=== PATIENT | male | born 1940 | race Caucasian/White ===

== ENCOUNTER 2018-10-31 16:13 | Emergency (ER) | payer MEDICARE, OTHER ==
[~2018-10-31 16:13] MED LIST: ALBU18HF2 INH; CALC-793 PO; CARB15DR95 OP; CYCL-1 PO; DOCU100C41 PO; EDOX60TA PO; FLUT16SP26 BOTHNARES; FURO40TA4 PO; GABA-532 PO; HYDR-4383 PO; LATA2.5D6 LEFTEYE; LEVO25TA50 PO; LEVO500T2 PO; LISI5TAB PO; METO25TA6 PO; METR500T PO; NITR0.4T48 SL; OMEP20TA5 PO; POTA20TA19 PO; PRAV10TA38 PO
[2018-10-31 16:51] LABS: BASOPHILS % (AUTO) 0.5 % (0-1); EOSINOPHILS # (AUTO) 0.2 X10'3 (0-0.9); EOSINOPHILS % (AUTO) 2.4 % (0-6); HEMATOCRIT 45.4 % (42.0-52.0); HEMOGLOBIN 14.8 g/dl (14.0-17.9); LYMPHOCYTES # (AUTO) 1.1 X10'3 (1.1-4.8); LYMPHOCYTES % (AUTO) 15.8 % (21-51); MEAN CORPUSCULAR HEMOGLOBIN 30.4 PG (27.0-31.0); MEAN CORPUSCULAR HGB CONC 32.7 % (33.0-36.5); MEAN PLATELET VOLUME 9.1 FL (7.4-10.4); MONOCYTES # (AUTO) 0.7 X10'3 (0-0.9); MONOCYTES % (AUTO) 10.3 % (2-12); NEUTROPHILS # (AUTO) 5.1 X10'3 (1.8-7.7); PLATELET COUNT 139 X10'3 (140-440); RED BLOOD COUNT 4.88 X10'6 (4.70-6.10); RED CELL DISTRIBUTION WIDTH 14.3 % (11.5-14.5); WHITE BLOOD COUNT 7.1 X10'3 (4.5-11.0)
[2018-10-31 17:03] LABS: ALANINE AMINOTRANSFERASE 28 U/L (12-78); ALBUMIN 3.5 G/DL (3.4-5.0); ALKALINE PHOSPHATASE 53 IU/L (46-116); ANION GAP 9 (8-16); ASPARTATE AMINO TRANSFERASE 18 U/L (10-37); BILIRUBIN,TOTAL 0.4 MG/DL (0.1-1.0); BLOOD UREA NITROGEN 33 MG/DL (7-18); BUN/CREATININE RATIO 26.2 (5.4-32.0); CALCIUM 8.6 MG/DL (8.5-10.1); CHLORIDE 101 MMOL/L (99-107); CREATININE 1.26 MG/DL (0.60-1.10); GLUCOSE 104 MG/DL (70-104); POTASSIUM 4.6 MMOL/L (3.5-5.1); SODIUM 139 MMOL/L (135-145); TOTAL CARBON DIOXIDE 29.1 MMOL/L (24-32); TOTAL PROTEIN 7.1 G/DL (6.4-8.2); eGFR 55 ML/MIN
[2018-10-31 17:14] LABS: PARTIAL THROMBOPLASTIN TIME 27 SECONDS (22-32); PROTHROMBIN TIME 10.2 SECONDS (9.0-12.0)
[2018-10-31] MEDS ORDERED: albuterol 2.5 MG/3 ML nebule NEB ONE (20:00)
[2018-10-31] MEDS ORDERED: dexamethasone 4mg tablet PO ONE (21:30)
[2018-10-31] MEDS ORDERED: PRED20TA PO (21:32)
[2018-10-31] MEDS ORDERED: normal saline 1000ml 1,000 ML IV ONE (21:48)
[2018-10-31] MEDS ORDERED: normal saline 1000ML IV soln IVB ONE (21:50)
[2018-10-31] MEDS ORDERED: iohexol 350MG/ML 100ml bottle IV ONE (22:02)
[2018-10-31 23:00] VITALS: BP 105/67
== END 2018-10-31 23:05 | disposition home or self-care (01) ==
LOC: ER 16:13
DX: I95.9 Hypotension, unspecified (principal); I50.9 Heart failure, unspecified; R06.02 Shortness of breath; R14.0 Abdominal distension (gaseous); I25.10 Atherosclerotic heart disease of native coronary artery without angina pectoris; I25.2 Old myocardial infarction; Z86.73 Personal history of transient ischemic attack (TIA), and cerebral infarction without residual deficits; Z90.49 Acquired absence of other specified parts of digestive tract; Z98.890 Other specified postprocedural states; Z79.899 Other long term (current) drug therapy; Z88.8 Allergy status to other drugs, medicaments and biological substances
CPT/HCPCS: 36415; 71045; 71275; 74176; 80053; 83605; 83880; 84484; 85025; 85610; 85730; 87040; 93005; 93975; 94640; 94760; 96360; 99284; J7030; J8540; Q9967

== ENCOUNTER 2019-01-25 16:46 | Emergency (ER) | payer MEDICARE, OTHER ==
[~2019-01-25] VITALS: Ht 167.6 cm; Wt 79.0 kg
[2019-01-25 18:02] LABS: BASOPHILS # (AUTO) 0.1 X10'3 (0-0.2); BASOPHILS % (AUTO) 0.9 % (0-1); EOSINOPHILS # (AUTO) 0.2 X10'3 (0-0.9); EOSINOPHILS % (AUTO) 2.4 % (0-6); HEMATOCRIT 41.3 % (42.0-52.0); HEMOGLOBIN 13.9 g/dl (14.0-17.9); LYMPHOCYTES % (AUTO) 11.8 % (21-51); MEAN CORPUSCULAR HEMOGLOBIN 31.8 PG (27.0-31.0); MEAN CORPUSCULAR HGB CONC 33.8 g/dL (33.0-36.5); MEAN CORPUSCULAR VOLUME 94.2 FL (78-98); MEAN PLATELET VOLUME 8.7 FL (7.4-10.4); MONOCYTES # (AUTO) 0.9 X10'3 (0-0.9); MONOCYTES % (AUTO) 9.6 % (2-12); NEUTROPHILS # (AUTO) 6.7 X10'3 (1.8-7.7); NEUTROPHILS % (AUTO) 75.3 % (42-75); PLATELET COUNT 140 X10'3 (140-440); RED BLOOD COUNT 4.38 X10'6 (4.70-6.10); RED CELL DISTRIBUTION WIDTH 15.1 % (11.5-14.5); WHITE BLOOD COUNT 8.9 X10'3 (4.5-11.0)
[2019-01-25 18:20] LABS: PARTIAL THROMBOPLASTIN TIME 28 SECONDS (22-32); PROTHROMBIN TIME 10.4 SECONDS (9.0-12.0)
[2019-01-25 18:28] LABS: ALANINE AMINOTRANSFERASE 23 U/L (12-78); ALBUMIN 3.4 G/DL (3.4-5.0); ALBUMIN/GLOBULIN RATIO 0.9 (1.1-1.5); ALKALINE PHOSPHATASE 53 IU/L (46-116); ANION GAP 7 (8-16); ASPARTATE AMINO TRANSFERASE 14 U/L (10-37); BILIRUBIN,TOTAL 0.3 MG/DL (0.1-1.0); BLOOD UREA NITROGEN 40 MG/DL (7-18); BUN/CREATININE RATIO 23.3 (5.4-32.0); CALCIUM 8.3 MG/DL (8.5-10.1); CHLORIDE 101 MMOL/L (99-107); CREATININE 1.72 MG/DL (0.60-1.10); GLUCOSE 107 MG/DL (70-104); POTASSIUM 3.5 MMOL/L (3.5-5.1); SODIUM 137 MMOL/L (135-145); TOTAL CARBON DIOXIDE 29.3 MMOL/L (24-32); eGFR 38 ML/MIN
[2019-01-25] MEDS ORDERED: ondansetron/PF 4mg/2ml inj IV ONE (18:55)
[2019-01-25] MEDS ORDERED: normal saline 1000ML IV soln IVB ONE (18:55)
[2019-01-25] MEDS ORDERED: dexamethasone sod phosphate 10mg/ml inj IV STA (18:59)
[2019-01-25] MEDS ORDERED: ipratropium/albuterol 3ml nebule NEB ONE (19:00)
[2019-01-25] MEDS ORDERED: azithromycin 250mg tablet PO ONE (20:10)
[2019-01-25] MEDS ORDERED: AZIT-63 PO (20:12)
[2019-01-25] MEDS ORDERED: PRED20TA PO (20:12)
[2019-01-25 21:01] VITALS: BP 95/57
== END 2019-01-25 21:02 | disposition home or self-care (01) ==
LOC: ER 16:46
DX: J40 Bronchitis, not specified as acute or chronic (principal); R53.1 Weakness; R11.0 Nausea; R42 Dizziness and giddiness; R51 Headache; J80 Acute respiratory distress syndrome; R79.1 Abnormal coagulation profile; I25.10 Atherosclerotic heart disease of native coronary artery without angina pectoris; I25.2 Old myocardial infarction; Z79.899 Other long term (current) drug therapy; Z79.2 Long term (current) use of antibiotics; Z88.8 Allergy status to other drugs, medicaments and biological substances; Z86.73 Personal history of transient ischemic attack (TIA), and cerebral infarction without residual deficits; Z86.718 Personal history of other venous thrombosis and embolism; Z98.890 Other specified postprocedural states; Z90.49 Acquired absence of other specified parts of digestive tract; Z99.81 Dependence on supplemental oxygen
CPT/HCPCS: 36415; 71046; 80053; 83605; 83880; 84145; 84484; 85025; 85610; 85730; 87040; 87077; 87186; 93005; 94640; 94760; 96374; 96375; 99284; J1100; J2405; J7030

== ENCOUNTER 2020-04-03 15:47 | Emergency (ER) | payer MEDICARE, OTHER ==
[~2020-04-03] VITALS: Ht 167.6 cm; Wt 77.7 kg
[~2020-04-03 15:47] MED LIST changes: -ALBU18HF2 INH; +ALBU2.5V12 NEB; +ASPI81TA52 PO; -CALC-793 PO; -CARB15DR95 OP; -CYCL-1 PO; +CYCL1DRO2 EACHEYE; +DEXT15DR27 EACHEYE; +DOCU-28 PO; -DOCU100C41 PO; -EDOX60TA PO; -FLUT16SP26 BOTHNARES; -FURO40TA4 PO; -GABA-532 PO; +HYDR-3965 PO; -HYDR-4383 PO; -LATA2.5D6 LEFTEYE; +LEVO25TA2 PO; -LEVO25TA50 PO; -LEVO500T2 PO; -LISI5TAB PO; -METO25TA6 PO; -METR500T PO; -NITR0.4T48 SL; -OMEP20TA5 PO; -POTA20TA19 PO; -PRAV10TA38 PO; +SACU1TAB PO; +XAL0.005OS RIGHT EAR
--- NOTE | 2020-04-03 16:31 | NUR ---
EKG done. pt wc to CT scan.
[2020-04-03 16:37] LABS: BASOPHILS % (AUTO) 0.6 % (0-1); EOSINOPHILS # (AUTO) 0.5 X10'3 (0-0.9); EOSINOPHILS % (AUTO) 7.2 % (0-6); HEMATOCRIT 42.6 % (42.0-52.0); HEMOGLOBIN 14.2 g/dl (14.0-17.9); LYMPHOCYTES # (AUTO) 1.2 X10'3 (1.1-4.8); LYMPHOCYTES % (AUTO) 15.7 % (21-51); MEAN CORPUSCULAR HEMOGLOBIN 31.3 PG (27.0-31.0); MEAN CORPUSCULAR HGB CONC 33.3 g/dL (33.0-36.5); MEAN CORPUSCULAR VOLUME 93.9 FL (78-98); MEAN PLATELET VOLUME 7.9 FL (7.4-10.4); MONOCYTES # (AUTO) 0.9 X10'3 (0-0.9); MONOCYTES % (AUTO) 11.6 % (2-12); NEUTROPHILS # (AUTO) 4.9 X10'3 (1.8-7.7); NEUTROPHILS % (AUTO) 64.9 % (42-75); PLATELET COUNT 125 X10'3 (140-440); RED BLOOD COUNT 4.54 X10'6 (4.70-6.10); RED CELL DISTRIBUTION WIDTH 14.7 % (11.5-14.5); WHITE BLOOD COUNT 7.5 X10'3 (4.5-11.0)
[2020-04-03 16:56] LABS: ALANINE AMINOTRANSFERASE 24 U/L (12-78); ALBUMIN 3.5 G/DL (3.4-5.0); ALBUMIN/GLOBULIN RATIO 1.1 (1.1-1.5); ALKALINE PHOSPHATASE 48 IU/L (46-116); ANION GAP 5 (8-16); ASPARTATE AMINO TRANSFERASE 15 U/L (10-37); BILIRUBIN,TOTAL 0.4 MG/DL (0.1-1.0); BLOOD UREA NITROGEN 27 MG/DL (7-18); BUN/CREATININE RATIO 22.5 (5.4-32.0); CALCIUM 8.8 MG/DL (8.5-10.1); CHLORIDE 102 MMOL/L (99-107); GLUCOSE 102 MG/DL (70-104); POTASSIUM 4.8 MMOL/L (3.5-5.1); SODIUM 137 MMOL/L (135-145); TOTAL CARBON DIOXIDE 30.2 MMOL/L (24-32); TOTAL PROTEIN 6.7 G/DL (6.4-8.2); eGFR 58 ML/MIN
[2020-04-03] MEDS ORDERED: acetaminophen 325mg tablet PO ONE (17:00)
[2020-04-03] MEDS ORDERED: normal saline 1000ML IV soln IVB ONE (17:00)
[2020-04-03 17:01] LABS: TROPONIN I < 0.04 NG/ML (0.0-0.05)
[2020-04-03] MEDS ORDERED: iohexol 350MG/ML 100ml bottle IV ONE (17:06)
[2020-04-03 17:33] LABS: CLARITY,URINE CLEAR (Clear); COLOR,URINE YELLOW (Yellow); GLUCOSE, URINE NEGATIVE (Neg); KETONES,URINE NEGATIVE (Neg); LEUKOCYTE ESTERASE ,URINE NEGATIVE (Neg); NITRITES, URINE NEGATIVE (Neg); OCCULT BLOOD,URINE TRACE-INTACT (Neg); PH,URINE 6.5 (4.8-8.0); PROTEIN,URINE NEGATIVE (Neg); UROBILINOGEN,URINE 0.2 E.U/dL (0.2-1.0)
[2020-04-03 17:34] LABS: UA COLLECTION TYPE URINAL
[2020-04-03 17:43] LABS: BACTERIA,URINE NONE SEEN /HPF (Neg); MUCUS STRANDS NONE SEEN /LPF (Neg); RBC,URINE 0-2 /HPF (0-2); SQUAMOUS EPITHELIAL CELL,UR FEW /LPF (FEW); WBC,URINE NONE SEEN /HPF (0-4)
[2020-04-03 18:37] VITALS: BP 131/80
== END 2020-04-03 18:37 | disposition home or self-care (01) ==
LOC: ER 15:48
DX: R51 Headache (principal); I10 Essential (primary) hypertension; I25.10 Atherosclerotic heart disease of native coronary artery without angina pectoris; I25.2 Old myocardial infarction; Z86.73 Personal history of transient ischemic attack (TIA), and cerebral infarction without residual deficits; Z90.49 Acquired absence of other specified parts of digestive tract; Z95.0 Presence of cardiac pacemaker; Z98.890 Other specified postprocedural states; Z88.8 Allergy status to other drugs, medicaments and biological substances; Z79.82 Long term (current) use of aspirin; Z79.899 Other long term (current) drug therapy
CPT/HCPCS: 36415; 70450; 70496; 70498; 71045; 80053; 81001; 84484; 85025; 93005; 99285; J7030; Q9967

== ENCOUNTER 2021-09-02 21:39 | Emergency (ER) | payer OTHER, MEDICARE ==
[~2021-09-02] VITALS: Ht 167.6 cm; Wt 77.3 kg
[2021-09-02 21:48] VITALS: BP 104/67
[2021-09-02] MEDS ORDERED: ondansetron/PF 4mg/2ml inj IV ONE (22:35)
[2021-09-02] MEDS ORDERED: pantoprazole 40 MG vial IV ONE (22:35)
[2021-09-02] MEDS ORDERED: normal saline 1000ML IV soln IVB ONE (22:35)
[2021-09-02] MEDS ORDERED: carVEDilol 12.5mg tablet PO SCH (22:50)
[2021-09-02 23:19] LABS: BASOPHILS # (AUTO) 0.2 X10'3 (0-0.2); BASOPHILS % (AUTO) 1.6 % (0-1); EOSINOPHILS # (AUTO) 0.1 X10'3 (0-0.9); EOSINOPHILS % (AUTO) 1.1 % (0-6); HEMATOCRIT 44.7 % (42.0-52.0); LYMPHOCYTES # (AUTO) 0.5 X10'3 (1.1-4.8); LYMPHOCYTES % (AUTO) 5.5 % (21-51); MEAN CORPUSCULAR HEMOGLOBIN 32.1 PG (27.0-31.0); MEAN CORPUSCULAR HGB CONC 33.6 g/dL (33.0-36.5); MEAN CORPUSCULAR VOLUME 95.5 FL (78-98); MEAN PLATELET VOLUME 8.9 FL (7.4-10.4); MONOCYTES # (AUTO) 0.8 X10'3 (0-0.9); MONOCYTES % (AUTO) 7.9 % (2-12); NEUTROPHILS # (AUTO) 8.1 X10'3 (1.8-7.7); NEUTROPHILS % (AUTO) 83.9 % (42-75); PLATELET COUNT 127 X10'3 (140-440); RED BLOOD COUNT 4.68 X10'6 (4.70-6.10); RED CELL DISTRIBUTION WIDTH 14.6 % (11.5-14.5); WHITE BLOOD COUNT 9.6 X10'3 (4.5-11.0)
[2021-09-02 23:29] LABS: ALANINE AMINOTRANSFERASE 24 U/L (12-78); ALBUMIN 3.6 G/DL (3.4-5.0); ALBUMIN/GLOBULIN RATIO 0.9 (1.1-1.5); ALKALINE PHOSPHATASE 49 IU/L (46-116); ANION GAP 9 (8-16); ASPARTATE AMINO TRANSFERASE 16 U/L (10-37); BILIRUBIN,TOTAL 0.4 MG/DL (0.1-1.0); BLOOD UREA NITROGEN 38 MG/DL (7-18); BUN/CREATININE RATIO 31.9 (5.4-32.0); CALCIUM 8.4 MG/DL (8.5-10.1); CHLORIDE 109 MMOL/L (99-107); CREATININE 1.19 MG/DL (0.60-1.10); GLUCOSE 120 MG/DL (70-104); POTASSIUM 4.9 MMOL/L (3.5-5.1); SODIUM 145 MMOL/L (135-145); TOTAL CARBON DIOXIDE 26.8 MMOL/L (24-32); TOTAL PROTEIN 7.4 G/DL (6.4-8.2); eGFR 58 ML/MIN
[2021-09-02 23:54] LABS: TOTAL CELLS COUNTED 100
[2021-09-02 23:55] LABS: PLATELET ESTIMATE DECREASED
[2021-09-02 23:58] LABS: LARGE PLATELETS FEW
--- NOTE | 2021-09-03 01:05 | NUR ---
cristela ambulated 100ft steady gait no assistance
== END 2021-09-03 01:28 | disposition home or self-care (01) ==
LOC: ER 21:42
DX: R19.7 Diarrhea, unspecified (principal); I25.10 Atherosclerotic heart disease of native coronary artery without angina pectoris; I25.2 Old myocardial infarction; Z86.73 Personal history of transient ischemic attack (TIA), and cerebral infarction without residual deficits; Z90.49 Acquired absence of other specified parts of digestive tract; Z95.0 Presence of cardiac pacemaker; Z79.899 Other long term (current) drug therapy; Z79.82 Long term (current) use of aspirin; Z88.8 Allergy status to other drugs, medicaments and biological substances
CPT/HCPCS: 36415; 71045; 80053; 84484; 85007; 85025; 93005; 96361; 96374; 96375; 99285; C9113; J2405; J7030

== ENCOUNTER 2024-01-05 12:55 | Day surgery (SDC) | payer MEDICARE, OTHER ==
[2024-01-01 10:45] LABS: BASOPHILS % (AUTO) 0.2 % (0-1); EOSINOPHILS # (AUTO) 0.1 X10'3 (0-0.9); EOSINOPHILS % (AUTO) 2.1 % (0-6); HEMATOCRIT 41.3 % (42.0-52.0); HEMOGLOBIN 13.6 g/dl (14.0-17.9); LYMPHOCYTES # (AUTO) 0.9 X10'3 (1.1-4.8); LYMPHOCYTES % (AUTO) 14.1 % (21-51); MEAN CORPUSCULAR HEMOGLOBIN 30.9 PG (27.0-31.0); MEAN CORPUSCULAR HGB CONC 32.8 g/dL (33.0-36.5); MONOCYTES # (AUTO) 0.8 X10'3 (0-0.9); MONOCYTES % (AUTO) 11.7 % (2-12); NEUTROPHILS # (AUTO) 4.9 X10'3 (1.8-7.7); NEUTROPHILS % (AUTO) 71.9 % (42-75); PLATELET COUNT 115 X10'3 (140-440); RED CELL DISTRIBUTION WIDTH 14.9 % (11.5-14.5); WHITE BLOOD COUNT 6.8 X10'3 (4.5-11.0)
[2024-01-01 10:54] LABS: APTT 27 SECONDS (22-32); PROTHROMBIN TIME 10.7 SECONDS (9.0-12.0)
[2024-01-01 11:17] LABS: ALBUMIN 3.3 G/DL (3.4-5.0); ANION GAP 9 (8-16); BLOOD UREA NITROGEN 28 MG/DL (7-18); BUN/CREATININE RATIO 28.6 (10.0-20.0); CALCIUM 8.2 MG/DL (8.5-10.1); CHLORIDE 104 MMOL/L (99-107); CHOL/HDL RATIO 2.4 (0.00-4.99); CHOLESTEROL 151 MG/DL (0-200); CREATININE 0.98 MG/DL (0.60-1.10); GLUCOSE 104 MG/DL (70-104); HDL CHOLESTEROL 63 MG/DL (35-60); LDL CHOLESTEROL 72 MG/DL (50-100); POTASSIUM 4.6 MMOL/L (3.5-5.1); SODIUM 143 MMOL/L (135-145); TOTAL CARBON DIOXIDE 29.9 MMOL/L (24-32); TRIGLYCERIDES 84 MG/DL (20-135); eGFR 73 ML/MIN
[~2024-01-05] VITALS: Ht 167.6 cm; Wt 82.6 kg
[2024-01-05] VITALS (11 sets, daily range): BP systolic 92–128; BP diastolic 55–81; PULSE 70–81; RESP 16; TEMP 98.2; O2SAT 87–96
[2024-01-05] MEDS ORDERED: diphenhydrAMINE 25mg capsule PO PRN (13:25)
[2024-01-05] MEDS ORDERED: LORazepam 0.5 MG tablet PO PRN (13:25)
[2024-01-05] MEDS ORDERED: normal saline 1,000 ML IV SCH (13:25)
[2024-01-05] MEDS ORDERED: LIDOcaine 1% (10mg/ml) 2ml vial ONE (14:13)
[2024-01-05] MEDS ORDERED: verapamil 2.5 mg/ml inj IV ONE (14:13)
[2024-01-05] MEDS ORDERED: iohexol 350MG/ML 100ml bottle IV ONE (14:14)
[2024-01-05] MEDS ORDERED: midazolam 1 mg/ML 2ml injection ONE (14:14)
[2024-01-05] MEDS ORDERED: heparin 1,000unit/ml 10ml vial 10 ML ONE (14:14)
[2024-01-05] MEDS ORDERED: fentaNYL/PF 50MCG/1 ML 2ML syringe ONE (14:14)
[2024-01-05] MEDS ORDERED: nitroGLYCERIN 500mcg/5mL D5W 5 ML IV ONE (14:15)
[2024-01-05] MEDS ORDERED: CARV-50 PO (14:36)
[2024-01-05] MEDS ORDERED: FLO0.4C PO (14:36)
[2024-01-05] MEDS ORDERED: FURO20TA4 PO (14:36)
[2024-01-05] MEDS ORDERED: OMEP20CA16 PO (14:36)
[2024-01-05] MEDS ORDERED: POTA-206 PO (14:36)
[2024-01-05] MEDS ORDERED: ROSU10TA28 PO (14:36)
[2024-01-05] MEDS ORDERED: IPRA3AMP31 IH (14:36)
[2024-01-05] MEDS ORDERED: HYDROmorphone 1 mg/ml syringe ONE (14:50)
[2024-01-05] MEDS ORDERED: LIDOcaine 1% 30ml preserv. free vial ONE (14:58)
[2024-01-05] MEDS ORDERED: iohexol 350 MG/ML 50ML vial IV ONE (15:13)
== END 2024-01-05 20:10 | disposition home or self-care (01) ==
LOC: SSTAY O 12:55
PROVIDERS: ATTEND Student in an Organized Health Care Education/Training Program
DX: R94.39 Abnormal result of other cardiovascular function study (principal); I25.10 Atherosclerotic heart disease of native coronary artery without angina pectoris; I50.9 Heart failure, unspecified; E78.5 Hyperlipidemia, unspecified; I65.29 Occlusion and stenosis of unspecified carotid artery; I42.9 Cardiomyopathy, unspecified; E03.9 Hypothyroidism, unspecified; J61 Pneumoconiosis due to asbestos and other mineral fibers; J44.9 Chronic obstructive pulmonary disease, unspecified; I48.0 Paroxysmal atrial fibrillation; Z95.810 Presence of automatic (implantable) cardiac defibrillator; Z88.8 Allergy status to other drugs, medicaments and biological substances; Z79.899 Other long term (current) drug therapy
CPT/HCPCS: 36415; 80048; 80061; 85025; 85610; 85730; 93005; 93454; 99152; 99153; J1170; J1644; J2250; J3010; J3490; J7030; Q9967; A6258; A6402; C1760; C1894

== ENCOUNTER 2024-01-13 14:24 | Inpatient (IN) | payer MEDICARE, OTHER ==
[~2024-01-13] VITALS: Ht 152.4 cm; Wt 82.3 kg
[~2024-01-13 14:24] MED LIST changes: +CARV-50 PO; +FLO0.4C PO; +FURO20TA4 PO; +IPRA3AMP31 IH; +OMEP20CA16 PO; +POTA-206 PO; +ROSU10TA28 PO
[2024-01-13 14:55] LABS: BASOPHILS % (AUTO) 0.4 % (0-1); EOSINOPHILS # (AUTO) 0.3 X10'3 (0-0.9); EOSINOPHILS % (AUTO) 4.1 % (0-6); HEMATOCRIT 42.8 % (42.0-52.0); LYMPHOCYTES # (AUTO) 0.9 X10'3 (1.1-4.8); LYMPHOCYTES % (AUTO) 13.4 % (21-51); MEAN CORPUSCULAR HEMOGLOBIN 30.9 PG (27.0-31.0); MEAN CORPUSCULAR HGB CONC 32.7 g/dL (33.0-36.5); MEAN CORPUSCULAR VOLUME 94.5 FL (78-98); MEAN PLATELET VOLUME 8.3 FL (7.4-10.4); MONOCYTES # (AUTO) 0.6 X10'3 (0-0.9); MONOCYTES % (AUTO) 9.6 % (2-12); NEUTROPHILS # (AUTO) 4.6 X10'3 (1.8-7.7); NEUTROPHILS % (AUTO) 72.5 % (42-75); PLATELET COUNT 120 X10'3 (140-440); RED BLOOD COUNT 4.53 X10'6 (4.70-6.10); RED CELL DISTRIBUTION WIDTH 14.7 % (11.5-14.5); WHITE BLOOD COUNT 6.4 X10'3 (4.5-11.0)
[2024-01-13 15:17] LABS: ALBUMIN 3.3 G/DL (3.4-5.0); ANION GAP 3 (8-16); BLOOD UREA NITROGEN 28 MG/DL (7-18); BUN/CREATININE RATIO 25.5 (10.0-20.0); CALCIUM 8.5 MG/DL (8.5-10.1); CHLORIDE 106 MMOL/L (99-107); GLUCOSE 118 MG/DL (70-104); POTASSIUM 4.5 MMOL/L (3.5-5.1); PRO BRAIN NATRIURETIC PEPTIDE 1260 PG/ML (0-450); SODIUM 142 MMOL/L (135-145); TOTAL CARBON DIOXIDE 32.7 MMOL/L (24-32); eCRCL 35 ML/MIN; eGFR 64 ML/MIN
[2024-01-13 17:12] LABS: BILIRUBIN,URINE NEGATIVE (Neg); CLARITY,URINE CLEAR (Clear); COLOR,URINE YELLOW (Yellow); GLUCOSE, URINE NEGATIVE (Neg); KETONES,URINE NEGATIVE (Neg); LEUKOCYTE ESTERASE ,URINE NEGATIVE (Neg); NITRITES, URINE NEGATIVE (Neg); OCCULT BLOOD,URINE TRACE-INTACT (Neg); PROTEIN,URINE NEGATIVE (Neg); UROBILINOGEN,URINE 0.2 E.U/dL (0.2-1.0)
[2024-01-13 17:27] LABS: UA COLLECTION TYPE CLN CATCH MIDSTREAM
[2024-01-13 17:28] LABS: SQUAMOUS EPITHELIAL CELL,UR FEW /LPF (FEW)
[2024-01-13 17:29] LABS: MUCUS STRANDS FEW /LPF (Neg)
[2024-01-13 17:31] LABS: BACTERIA,URINE FEW /HPF (Neg); RBC,URINE 0-2 /HPF (0-2); WBC,URINE 0-4 /HPF (0-4)
[2024-01-13 19:57] LABS: ABG BASE EXCESS 3.3 mmol/L (-2.0-2.0); ABG OXYGEN SATURATION 94.5 % (94-97); ABG PCO2 (T) 54.1 mmHg (35.0-48.0); ABG PH (T) 7.362 (7.340-7.440); ABG PO2 (T) 72.1 mmHg (75.0-100.0); ALLEN'S TEST POSITIVE; FCOHb 0.7 % (0.0-3.9); FHHb 5.5 % (0.0-5.0); FLOW 2 L/min; FMetHb 0.2 % (0.0-1.5); FO2Hb 93.6 % (94-97); MODE NASAL CANNULA
[2024-01-13] MEDS: albuterol 2.5 MG/3 ML nebule NEB ONE (19:58)
[2024-01-13] MEDS: nitroGLYCERIN 1gm ointment UD TP ONE (20:03)
[2024-01-13] MEDS: CefTRIAXone 2gm/D5W 50ml BAG 50 ML IV ONE (20:03)
[2024-01-13] MEDS: furosemide 10 MG/1 ML 10ml inj IV ONE (20:04)
[2024-01-13] MEDS: aspirin 325mg tablet, delayed-release (Ecotrin) PO ONE (20:04)
[2024-01-13] MEDS: dexamethasone sod phosphate 10mg/ml inj IV STA (20:05)
[2024-01-13 20:14] VITALS: PULSE 80; RESP 20; O2SAT 94
[2024-01-13 20:15] VITALS: PULSE 75; RESP 18; O2SAT 93
[2024-01-13] MEDS: azithromycin/NS 500mg/250ml 250 ML IV ONE (21:45)
[2024-01-13] MEDS: HYDROcodone/acetaminophen 5mg/325mg tablet PO ONE (22:01)
[2024-01-14] VITALS (12 sets, daily range): BP systolic 101–115; BP diastolic 45–71; PULSE 75–97; RESP 15–22; TEMP 97.5–98.4; O2SAT 87–96
[2024-01-14] MEDS ORDERED: ondansetron/PF 4mg/2ml inj IV PRN (01:50)
[2024-01-14] MEDS ORDERED: magnesium 4gm in 100ml NS 100 ML IV PRN (01:50)
[2024-01-14] MEDS ORDERED: magnesium Cl slow-release 64mg tablet PO PRN (01:50)
[2024-01-14] MEDS ORDERED: magnesium 2GM in 50ml NS 50 ML IV PRN (01:50)
[2024-01-14] MEDS ORDERED: potassium Cl 40MEQ/1/2NS 520ml 520 ML IV PRN (01:50)
[2024-01-14] MEDS ORDERED: magnesium hydroxide 30ml (MOM) UD suspension PO PRN (01:50)
[2024-01-14] MEDS ORDERED: mag hydrox/Alum hydrox/simeth 30ml oral suspension PO PRN (01:50)
[2024-01-14] MEDS ORDERED: potassium Cl 20 mEq SR tablet PO PRN ×2 (01:50)
[2024-01-14] MEDS ORDERED: acetaminophen 325mg tablet PO PRN ×2 (01:50)
[2024-01-14] MEDS ORDERED: albuterol 2.5 MG/3 ML nebule NEB SCH (03:15)
[2024-01-14] MEDS: ipratropium/albuterol 3ml nebule NEB PRN (04:47)
[2024-01-14 07:32] LABS: POTASSIUM 4.2 MMOL/L (3.5-5.1)
[2024-01-14] MEDS: heparin, porcine 5000 units/ml vial SQ SCH (08:00)
[2024-01-14] MEDS ORDERED: methylPREDNISolone sod succ/PF 40mg inj. IV SCH (08:00)
[2024-01-14] MEDS: K and/or MAG REPLACEMENT MC SCH (08:00)
[2024-01-14] MEDS ORDERED: albuterol 2.5 MG/3 ML nebule NEB PRN (08:30)
[2024-01-14] MEDS ORDERED: PERFLUTREN PROTEIN-A MICROSPHR (Optison) 0.22 MG/ML 3ML VIAL IV ONE (08:30)
[2024-01-14] MEDS: HYDROcodone/acetaminophen 5mg/325mg tablet PO PRN (11:22)
[2024-01-14] MEDS: furosemide 40mg/4ml inj IV SCH (15:00)
[2024-01-14] MEDS: HYDROcodone/acetaminophen 10/325mg tab PO PRN (17:36)
[2024-01-14] MEDS: methylPREDNISolone sod succ/PF 40mg inj. IV SCH (19:23)
[2024-01-14] MEDS: lactulose 20gm/30ml cup PO SCH (19:23)
[2024-01-14] MEDS: azithromycin/NS 500mg/250ml 250 ML IV SCH (19:27)
[2024-01-14] MEDS: CefTRIAXone/D5W-Rocephin 1gm 50 ML IV SCH (19:27)
[2024-01-14] MEDS ORDERED: PERFLUTREN PROTEIN-A MICROSPHR (Optison) 0.22 MG/ML 3ML VIAL IV PRN (23:15)
[2024-01-14] MEDS: zolpidem 5mg tablet PO ONE (23:16)
[2024-01-15 06:44] VITALS: BP 133/74; PULSE 85; RESP 17; TEMP 97.3; O2SAT 93
[2024-01-15 07:03] LABS: BASOPHILS % (AUTO) 0.1 % (0-1); EOSINOPHILS % (AUTO) 0.2 % (0-6); HEMATOCRIT 38.9 % (42.0-52.0); HEMOGLOBIN 13.1 g/dl (14.0-17.9); LYMPHOCYTES # (AUTO) 0.8 X10'3 (1.1-4.8); LYMPHOCYTES % (AUTO) 9.7 % (21-51); MEAN CORPUSCULAR HEMOGLOBIN 31.5 PG (27.0-31.0); MEAN CORPUSCULAR HGB CONC 33.7 g/dL (33.0-36.5); MEAN CORPUSCULAR VOLUME 93.3 FL (78-98); MEAN PLATELET VOLUME 8.3 FL (7.4-10.4); MONOCYTES # (AUTO) 0.7 X10'3 (0-0.9); MONOCYTES % (AUTO) 8.6 % (2-12); NEUTROPHILS # (AUTO) 6.7 X10'3 (1.8-7.7); NEUTROPHILS % (AUTO) 81.4 % (42-75); PLATELET COUNT 114 X10'3 (140-440); RED BLOOD COUNT 4.17 X10'6 (4.70-6.10); RED CELL DISTRIBUTION WIDTH 14.8 % (11.5-14.5); WHITE BLOOD COUNT 8.3 X10'3 (4.5-11.0)
[2024-01-15 07:19] LABS: ALBUMIN 2.7 G/DL (3.4-5.0); ANION GAP 8 (8-16); BLOOD UREA NITROGEN 30 MG/DL (7-18); BUN/CREATININE RATIO 26.5 (10.0-20.0); CALCIUM 8.1 MG/DL (8.5-10.1); CHLORIDE 104 MMOL/L (99-107); CREATININE 1.13 MG/DL (0.60-1.10); GLUCOSE 122 MG/DL (70-104); MAGNESIUM 2.1 MG/DL (1.5-2.4); POTASSIUM 4.2 MMOL/L (3.5-5.1); SODIUM 142 MMOL/L (135-145); TOTAL CARBON DIOXIDE 30.5 MMOL/L (24-32); eCRCL 34 ML/MIN; eGFR 62 ML/MIN
[2024-01-15 08:55] VITALS: PULSE 83; RESP 22; O2SAT 90
[2024-01-15 10:00] VITALS: BP 153/89; PULSE 88; RESP 22; TEMP 98.6; O2SAT 92
[2024-01-15 18:00] VITALS: BP 135/83; PULSE 113; RESP 18; TEMP 97.9; O2SAT 94
[2024-01-15 19:59] VITALS: PULSE 81; RESP 22; O2SAT 91
[2024-01-15] MEDS: PEG 400/HYPROMELLOSE/GLYCERIN 15ml bottle EACHEYE PRN (20:13)
[2024-01-15] MEDS: zolpidem 5mg tablet PO PRN (21:14)
[2024-01-15 22:00] VITALS: BP 136/70; PULSE 83; RESP 16; TEMP 97.7; O2SAT 94
[2024-01-16 06:36] VITALS: BP 105/64; PULSE 94; RESP 16; TEMP 97; O2SAT 94
[2024-01-16 06:38] VITALS: BP 118/55; PULSE 97; RESP 17; TEMP 99.5; O2SAT 94
[2024-01-16 06:41] LABS: BASOPHILS % (AUTO) 0.2 % (0-1); EOSINOPHILS % (AUTO) 0.1 % (0-6); HEMATOCRIT 42.3 % (42.0-52.0); HEMOGLOBIN 14.1 g/dl (14.0-17.9); LYMPHOCYTES # (AUTO) 0.8 X10'3 (1.1-4.8); LYMPHOCYTES % (AUTO) 9.1 % (21-51); MEAN CORPUSCULAR HEMOGLOBIN 31.3 PG (27.0-31.0); MEAN CORPUSCULAR HGB CONC 33.3 g/dL (33.0-36.5); MEAN PLATELET VOLUME 8.5 FL (7.4-10.4); MONOCYTES # (AUTO) 0.5 X10'3 (0-0.9); MONOCYTES % (AUTO) 5.6 % (2-12); NEUTROPHILS # (AUTO) 7.8 X10'3 (1.8-7.7); PLATELET COUNT 127 X10'3 (140-440); RED CELL DISTRIBUTION WIDTH 14.7 % (11.5-14.5); WHITE BLOOD COUNT 9.1 X10'3 (4.5-11.0)
[2024-01-16 06:58] LABS: ALBUMIN 3.2 G/DL (3.4-5.0); ANION GAP 8 (8-16); BLOOD UREA NITROGEN 32 MG/DL (7-18); BUN/CREATININE RATIO 35.2 (10.0-20.0); CALCIUM 8.5 MG/DL (8.5-10.1); CHLORIDE 103 MMOL/L (99-107); CREATININE 0.91 MG/DL (0.60-1.10); GLUCOSE 144 MG/DL (70-104); MAGNESIUM 2.2 MG/DL (1.5-2.4); PHOSPHORUS 5.2 MG/DL (2.3-4.5); POTASSIUM 4.7 MMOL/L (3.5-5.1); SODIUM 142 MMOL/L (135-145); eCRCL 42 ML/MIN; eGFR 79 ML/MIN
[2024-01-16 08:12] VITALS: PULSE 110; RESP 22; O2SAT 91
[2024-01-16] MEDS ORDERED: FURO40TA4 PO (10:24)
[2024-01-16] MEDS ORDERED: PRED20TA PO (10:24)
[2024-01-16] MEDS ORDERED: ALBU2.5V12 NEB (10:24)
[2024-01-16] MEDS ORDERED: IPRA3AMP31 IH (10:24)
[2024-01-16] MEDS ORDERED: CEFD300C3 PO (10:24)
== END 2024-01-16 12:00 | disposition home or self-care (01) | DRG 291 ==
LOC: ER 14:25 → ED HOLD 23:07 → EDBEDREQ 23:46 → ORTHO 4S 01-14 02:40
PROVIDERS: ADMIT Internal Medicine Critical Care Medicine; ATTEND Family Medicine
DX: I50.23 Acute on chronic systolic (congestive) heart failure (principal); J96.21 Acute and chronic respiratory failure with hypoxia; J44.1 Chronic obstructive pulmonary disease with (acute) exacerbation; I48.20 Chronic atrial fibrillation, unspecified; I25.10 Atherosclerotic heart disease of native coronary artery without angina pectoris; G89.29 Other chronic pain; M54.9 Dorsalgia, unspecified; J61 Pneumoconiosis due to asbestos and other mineral fibers; Z20.822 Contact with and (suspected) exposure to COVID-19; Z95.0 Presence of cardiac pacemaker; I25.2 Old myocardial infarction; Z86.73 Personal history of transient ischemic attack (TIA), and cerebral infarction without residual deficits; Z88.8 Allergy status to other drugs, medicaments and biological substances; Z79.899 Other long term (current) drug therapy; Z79.82 Long term (current) use of aspirin; Z90.49 Acquired absence of other specified parts of digestive tract
CPT/HCPCS: 36415; 36600; 71045; 74018; 80048; 81001; 82803; 83605; 83735; 83880; 84100; 84132; 84484; 85018; 85025; 87040; 87070; 87081; 87811; 93005; 93306; 94640; 94760; 96365; 96367; 96375; 97161; 97530; 99285; A4615; A6258; G0378; J0456; J0696; J1100; J1644; J1940; J2920; J7040

== ENCOUNTER 2024-02-13 13:44 | Inpatient (IN) | payer MEDICARE, OTHER ==
[~2024-02-13] VITALS: Ht 170.2 cm; Wt 85.5 kg
[2024-02-13] VITALS (7 sets, daily range): BP systolic 121; BP diastolic 75; PULSE 70–86; RESP 20–28; TEMP 98; O2SAT 91–92
[~2024-02-13 13:44] MED LIST changes: +CEFD300C3 PO; -FURO20TA4 PO; +FURO40TA4 PO; +PRED20TA PO
[2024-02-13 14:40] LABS: BASOPHILS % (AUTO) 0.5 % (0-1); EOSINOPHILS # (AUTO) 0.2 X10'3 (0-0.9); EOSINOPHILS % (AUTO) 3.3 % (0-6); HEMATOCRIT 39.5 % (42.0-52.0); HEMOGLOBIN 13.1 g/dl (14.0-17.9); LYMPHOCYTES # (AUTO) 0.8 X10'3 (1.1-4.8); LYMPHOCYTES % (AUTO) 13.5 % (21-51); MEAN CORPUSCULAR HEMOGLOBIN 31.7 PG (27.0-31.0); MEAN CORPUSCULAR HGB CONC 33.2 g/dL (33.0-36.5); MEAN CORPUSCULAR VOLUME 95.5 FL (78-98); MEAN PLATELET VOLUME 8.1 FL (7.4-10.4); MONOCYTES # (AUTO) 0.6 X10'3 (0-0.9); NEUTROPHILS # (AUTO) 4.2 X10'3 (1.8-7.7); NEUTROPHILS % (AUTO) 71.7 % (42-75); PLATELET COUNT 134 X10'3 (140-440); RED BLOOD COUNT 4.14 X10'6 (4.70-6.10); RED CELL DISTRIBUTION WIDTH 15.8 % (11.5-14.5); WHITE BLOOD COUNT 5.8 X10'3 (4.5-11.0)
[2024-02-13 15:01] LABS: ALBUMIN 3.1 G/DL (3.4-5.0); ANION GAP 5 (8-16); BLOOD UREA NITROGEN 25 MG/DL (7-18); BUN/CREATININE RATIO 23.8 (10.0-20.0); CHLORIDE 103 MMOL/L (99-107); CREATININE 1.05 MG/DL (0.60-1.10); GLUCOSE 197 MG/DL (70-104); POTASSIUM 3.9 MMOL/L (3.5-5.1); PRO BRAIN NATRIURETIC PEPTIDE 2389 PG/ML (0-450); SODIUM 143 MMOL/L (135-145); TOTAL CARBON DIOXIDE 34.6 MMOL/L (24-32); eCRCL 47 ML/MIN; eGFR 67 ML/MIN
[2024-02-13] MEDS: ipratropium 0.5 MG/2.5ML nebule IH ONE (16:00)
[2024-02-13] MEDS: albuterol 2.5 MG/3 ML nebule CONTNEB PRN (16:00)
[2024-02-13] MEDS: levoFLOXACIN-Levaquin 750MG/D5 150 ML IV ONE (16:27)
[2024-02-13] MEDS: methylPREDNISolone sod succ 125mg/2ml vial IV ONE (16:28)
[2024-02-13] MEDS ORDERED: FURO20TA4 PO (16:34)
[2024-02-13 16:46] LABS: ALANINE AMINOTRANSFERASE 21 U/L (12-78); ALBUMIN 2.8 G/DL (3.4-5.0); ALBUMIN/GLOBULIN RATIO 0.9 (1.1-1.5); ALKALINE PHOSPHATASE 42 IU/L (46-116); ASPARTATE AMINO TRANSFERASE 16 U/L (10-37); BILIRUBIN,DIRECT 0.1 MG/DL (0-0.3); BILIRUBIN,TOTAL 0.2 MG/DL (0.1-1.0); LIPASE 9 U/L (16-77)
[2024-02-13 16:59] LABS: BILIRUBIN,URINE NEGATIVE (Neg); CLARITY,URINE CLEAR (Clear); COLOR,URINE YELLOW (Yellow); GLUCOSE, URINE NEGATIVE (Neg); KETONES,URINE NEGATIVE (Neg); LEUKOCYTE ESTERASE ,URINE NEGATIVE (Neg); NITRITES, URINE NEGATIVE (Neg); OCCULT BLOOD,URINE NEGATIVE (Neg); PH,URINE 6.5 (4.8-8.0); PROTEIN,URINE NEGATIVE (Neg); UROBILINOGEN,URINE 0.2 E.U/dL (0.2-1.0)
[2024-02-13 17:00] LABS: UA COLLECTION TYPE NON-SPECIFIED
[2024-02-13] MEDS: furosemide 10 MG/1 ML 10ml inj IV ONE (17:52)
[2024-02-13] MEDS: ipratropium/albuterol 3ml nebule NEB SCH (17:55)
[2024-02-13] MEDS ORDERED: ipratropium/albuterol 3ml nebule NEB PRN (17:55)
[2024-02-13] MEDS ORDERED: potassium Cl 40MEQ/1/2NS 520ml 520 ML IV PRN (17:55)
[2024-02-13] MEDS ORDERED: magnesium 4gm in 100ml NS 100 ML IV PRN (17:55)
[2024-02-13] MEDS ORDERED: magnesium Cl slow-release 64mg tablet PO PRN (17:55)
[2024-02-13] MEDS ORDERED: magnesium hydroxide 30ml (MOM) UD suspension PO PRN (17:55)
[2024-02-13] MEDS ORDERED: potassium Cl 20 mEq SR tablet PO PRN ×2 (17:55)
[2024-02-13] MEDS ORDERED: ondansetron/PF 4mg/2ml inj IV PRN (17:55)
[2024-02-13] MEDS ORDERED: magnesium 2GM in 50ml NS 50 ML IV PRN (17:55)
[2024-02-13] MEDS: azithromycin/NS 500mg/250ml 250 ML IV SCH (18:39)
[2024-02-13] MEDS: pantoprazole 40 MG vial IV SCH (18:39)
[2024-02-13] MEDS: enoxaparin 30mg/0.3ml syringe SQ SCH (20:00)
[2024-02-13] MEDS: K and/or MAG REPLACEMENT MC SCH (20:00)
[2024-02-13] MEDS: docusate sod 100mg capsule PO SCH (22:46)
[2024-02-13] MEDS: furosemide 10 MG/1 ML 10ml inj IV SCH (22:46)
[2024-02-14] VITALS (19 sets, daily range): BP systolic 107–128; BP diastolic 49–60; PULSE 49–87; RESP 16–36; TEMP 97.3–98; O2SAT 88–99
[2024-02-14] MEDS: HYDROcodone/acetaminophen 5mg/325mg tablet PO PRN (00:24)
[2024-02-14 06:50] LABS: BASOPHILS % (AUTO) 0.1 % (0-1); EOSINOPHILS % (AUTO) 0.1 % (0-6); HEMATOCRIT 38.1 % (42.0-52.0); HEMOGLOBIN 12.7 g/dl (14.0-17.9); LYMPHOCYTES # (AUTO) 0.6 X10'3 (1.1-4.8); LYMPHOCYTES % (AUTO) 13.1 % (21-51); MEAN CORPUSCULAR HEMOGLOBIN 31.9 PG (27.0-31.0); MEAN CORPUSCULAR HGB CONC 33.5 g/dL (33.0-36.5); MEAN CORPUSCULAR VOLUME 95.2 FL (78-98); MEAN PLATELET VOLUME 8.4 FL (7.4-10.4); MONOCYTES # (AUTO) 0.1 X10'3 (0-0.9); MONOCYTES % (AUTO) 3.1 % (2-12); NEUTROPHILS # (AUTO) 3.6 X10'3 (1.8-7.7); NEUTROPHILS % (AUTO) 83.6 % (42-75); PLATELET COUNT 128 X10'3 (140-440); RED CELL DISTRIBUTION WIDTH 15.3 % (11.5-14.5); WHITE BLOOD COUNT 4.3 X10'3 (4.5-11.0)
[2024-02-14 07:01] LABS: ALANINE AMINOTRANSFERASE 14 U/L (12-78); ALBUMIN 2.8 G/DL (3.4-5.0); ALBUMIN/GLOBULIN RATIO 0.8 (1.1-1.5); ALKALINE PHOSPHATASE 45 IU/L (46-116); ANION GAP 6 (8-16); ASPARTATE AMINO TRANSFERASE 17 U/L (10-37); BILIRUBIN,TOTAL 0.3 MG/DL (0.1-1.0); BLOOD UREA NITROGEN 23 MG/DL (7-18); BUN/CREATININE RATIO 21.3 (10.0-20.0); CALCIUM 7.6 MG/DL (8.5-10.1); CHLORIDE 101 MMOL/L (99-107); CREATININE 1.08 MG/DL (0.60-1.10); GLUCOSE 148 MG/DL (70-104); MAGNESIUM 1.9 MG/DL (1.5-2.4); POTASSIUM 3.8 MMOL/L (3.5-5.1); SODIUM 142 MMOL/L (135-145); TOTAL CARBON DIOXIDE 34.7 MMOL/L (24-32); TOTAL PROTEIN 6.4 G/DL (6.4-8.2); eCRCL 46 ML/MIN; eGFR 65 ML/MIN
[2024-02-14] MEDS: CefTRIAXone/D5W-Rocephin 1gm 50 ML IV SCH (07:05)
[2024-02-14] MEDS: vancomycin/NS 1 GM ADD-VANTAGE 250 ML IV SCH (16:13)
[2024-02-14] MEDS: sacubitril/valsartan 24mg-26mg tablet PO SCH (20:07)
[2024-02-14] MEDS: carVEDilol 12.5mg tablet PO SCH (20:07)
[2024-02-14] MEDS: atorvastatin 20mg tablet PO SCH (20:07)
[2024-02-14] MEDS: latanoprost 0.005% 2.5ml ophthalmic drops LEFTEYE SCH (20:09)
[2024-02-14] MEDS ORDERED: latanoprost 0.005% 2.5ml ophthalmic drops RIGHTEYE SCH (21:00)
[2024-02-15 02:00] VITALS: BP 119/88; PULSE 82; RESP 21; TEMP 97.3; O2SAT 94
[2024-02-15] MEDS: acetaminophen 325mg tablet PO PRN (02:25)
[2024-02-15 06:00] VITALS: BP 124/70; PULSE 63; RESP 18; TEMP 97.3; O2SAT 94
[2024-02-15 07:13] LABS: BASOPHILS % (AUTO) 0.3 % (0-1); EOSINOPHILS # (AUTO) 0.1 X10'3 (0-0.9); HEMOGLOBIN 12.5 g/dl (14.0-17.9); LYMPHOCYTES % (AUTO) 15.4 % (21-51); MEAN CORPUSCULAR HEMOGLOBIN 31.4 PG (27.0-31.0); MEAN PLATELET VOLUME 8.1 FL (7.4-10.4); MONOCYTES # (AUTO) 0.9 X10'3 (0-0.9); MONOCYTES % (AUTO) 13.3 % (2-12); NEUTROPHILS # (AUTO) 4.5 X10'3 (1.8-7.7); PLATELET COUNT 132 X10'3 (140-440); RED CELL DISTRIBUTION WIDTH 15.5 % (11.5-14.5); WHITE BLOOD COUNT 6.6 X10'3 (4.5-11.0)
[2024-02-15] MEDS: aspirin 81mg, enteric-coated 1 TAB TABLET.DR PO SCH (07:36)
[2024-02-15] MEDS: pantoprazole 40mg Tablet.DR PO SCH (07:36)
[2024-02-15 07:37] LABS: ALANINE AMINOTRANSFERASE 15 U/L (12-78); ALBUMIN 2.8 G/DL (3.4-5.0); ALKALINE PHOSPHATASE 37 IU/L (46-116); ANION GAP 3 (8-16); ASPARTATE AMINO TRANSFERASE 18 U/L (10-37); BILIRUBIN,TOTAL 0.3 MG/DL (0.1-1.0); BLOOD UREA NITROGEN 27 MG/DL (7-18); BUN/CREATININE RATIO 23.7 (10.0-20.0); CALCIUM 7.6 MG/DL (8.5-10.1); CHLORIDE 102 MMOL/L (99-107); CREATININE 1.14 MG/DL (0.60-1.10); GLUCOSE 103 MG/DL (70-104); MAGNESIUM 1.8 MG/DL (1.5-2.4); POTASSIUM 3.6 MMOL/L (3.5-5.1); SODIUM 141 MMOL/L (135-145); TOTAL CARBON DIOXIDE 36.3 MMOL/L (24-32); TOTAL PROTEIN 5.7 G/DL (6.4-8.2); eCRCL 43 ML/MIN; eGFR 61 ML/MIN
[2024-02-15] MEDS: mag hydrox/Alum hydrox/simeth 30ml oral suspension PO PRN (10:39)
[2024-02-15 10:55] VITALS: PULSE 73; RESP 19; O2SAT 90
[2024-02-15 11:00] VITALS: BP 103/56; PULSE 95; RESP 18; TEMP 97.7; O2SAT 91
[2024-02-15 11:03] VITALS: PULSE 75; RESP 18
[2024-02-15] MEDS ORDERED: BUDE10.2 INH (12:07)
[2024-02-15] MEDS ORDERED: OMEP20CA16 PO (12:52)
[2024-02-15] MEDS ORDERED: CEFD300C3 PO (12:52)
[2024-02-15] MEDS ORDERED: ASPI81TA52 PO (12:52)
[2024-02-15] MEDS ORDERED: LEVO25TA2 PO (12:52)
[2024-02-15] MEDS ORDERED: CARV-50 PO (12:52)
[2024-02-15] MEDS ORDERED: ROSU10TA28 PO (12:52)
[2024-02-15] MEDS ORDERED: PRED10TA23 PO (12:52)
[2024-02-15] MEDS ORDERED: SACU1TAB PO (12:52)
[2024-02-15] MEDS ORDERED: LACT1CAP60 PO (12:52)
[2024-02-15] MEDS ORDERED: FURO20TA4 PO (12:55)
[2024-02-15 14:52] VITALS: PULSE 84; RESP 18; O2SAT 90
[2024-02-16] MEDS ORDERED: VANCOMYCIN LEVEL IV ONE (03:30)
[2024-02-16] MEDS ORDERED: azithromycin 250mg tablet PO SCH (08:00)
== END 2024-02-15 17:04 | disposition home health service (06) | DRG 189 ==
LOC: ER 13:45 → ED HOLD 17:54 → PCU 3S 22:15
PROVIDERS: ADMIT Family Medicine; ATTEND Family Medicine
DX: J96.21 Acute and chronic respiratory failure with hypoxia (principal); I50.23 Acute on chronic systolic (congestive) heart failure; J44.1 Chronic obstructive pulmonary disease with (acute) exacerbation; E78.00 Pure hypercholesterolemia, unspecified; E03.9 Hypothyroidism, unspecified; I48.91 Unspecified atrial fibrillation; N40.0 Benign prostatic hyperplasia without lower urinary tract symptoms; I25.10 Atherosclerotic heart disease of native coronary artery without angina pectoris; K21.9 Gastro-esophageal reflux disease without esophagitis; Z79.82 Long term (current) use of aspirin; I25.2 Old myocardial infarction; Z88.8 Allergy status to other drugs, medicaments and biological substances; Z79.899 Other long term (current) drug therapy; Z86.73 Personal history of transient ischemic attack (TIA), and cerebral infarction without residual deficits; Z90.49 Acquired absence of other specified parts of digestive tract; Z95.0 Presence of cardiac pacemaker
CPT/HCPCS: 36415; 71045; 80048; 80053; 80076; 81003; 83605; 83690; 83735; 83880; 84484; 85025; 87040; 87077; 87081; 93005; 94640; 94760; 96365; 96375; 97116; 97161; 97530; 97535; 99285; A4615; A7015; C9113; G0378; J0456; J0696; J1650; J1940; J1956; J2930; J3370; J7040